=== PATIENT | female | born 1965 | race Caucasian/White ===

== ENCOUNTER 2017-07-30 19:18 | Emergency (ER) | payer BC ==
[2017-07-30 21:19] VITALS: BP 124/79
--- NOTE | 2017-07-31 06:32 | ED ---
Marley Villagran Rebecca, scribed for Alicia Gannuel on 07/30/17 at 2040 . Throat Pain/Nasal Congestion - HPI Summary HPI Summary: Pt is a 51 y/o F who presents to ED c/o impaired R eye vision. Pt states that at 1840 tonight while at rest she suddenly began experiencing "streaky black things in my eye" and she can "only see lights." Sx aggravated and alleviated by nothing. Denies any visual changes of the L eye or MCCRACKEN. Confirms she had normal visual acuity prior to onset of sx. No recent injuries and she is not on blood thinners. 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 PSHx bilateral cataract. Has an appointment with her retinal specialist (Dr. Angelo) in [place] tomorrow morning at 0900. - History of Current Complaint Chief Complaint: EDEyeProblem Time Seen by Provider: 07/30/17 19:57 Hx Obtained From: Patient Onset/Duration: Sudden Onset, Still Present Cough: None - Allergies/Home Medications Allergies/Adverse Reactions: Allergies Allergy/AdvReac Type Severity Reaction Status Date / Time Clarithromycin [From Biaxin] Allergy Unknown Verified 07/30/17 19:37 Reaction Details PMH/Surg Hx/FS Hx/Imm Hx Respiratory History: Reports: Hx Asthma Sensory History: Reports: Hx Cataracts, Other Sensory Impairments - Hx particual retinal detachment and vitrious hemorrhage (R eye) - Cancer History Hx Chemotherapy: No Hx Radiation Therapy: No - Surgical History Surgery Procedure, Year, and Place: CATARACT BILATERALLY Infectious Disease History: No Infectious Disease History: Denies: Traveled Outside the in Last 30 Days - Family History Known Family History: Positive: Cardiac Disease, Hypertension, Diabetes - Social History Alcohol Use: None Substance Use Type: Reports: None Smoking Status (MU): Never Smoked Tobacco Review of Systems Positive: Other - R eye visual change; NEGATIVE: visual change sof the L eye Negative: Headache All Other Systems Reviewed And Are Negative: Yes Physical Exam - Summary Physical Exam Summary: Appearance: Well appearing, no pain distress Skin: warm, dry, reflects adequate perfusion Head/face: normal Eyes: EOMI, MI, she cannot count fingers or distinguish anything, is completely blind, with her R eye ENT: normal Neck: supple, nontender Respiratory: CTA, breath sounds present Cardiovascular: RRR, pulses symmetrical Abdomen: nontender, soft Bowel: present Musculoskeletal: normal, strength/ROM intact Neuro: normal, sensory motor intact, A&Ox3 Triage Information Reviewed: Yes Vital Signs On Initial Exam: Initial Vitals Temp Pulse Resp BP Pulse Ox 97.3 F 90 18 140/89 97 07/30/17 19:32 07/30/17 19:32 07/30/17 19:32 07/30/17 19:32 07/30/17 19:32 Vital Signs Reviewed: Yes - [place] Coma Scale Coma Scale Total: 15 Diagnostics - Vital Signs Vital Signs Temp Pulse Resp BP Pulse Ox 07/30/17 20:00 94 137/74 97 07/30/17 19:58 90 97 07/30/17 19:56 133/73 07/30/17 19:53 98.0 F 92 16 133/73 97 07/30/17 19:32 97.3 F 90 18 140/89 97 - Laboratory Lab Statement: Any lab studies that have been ordered have been reviewed, and results considered in the medical decision making process. Re-Evaluation - Re-Evaluation First Eval Re-Evaluation Time: 21:05 Comment: Discussing consult with Dr. Angelo and D/C plan. EENT Course/Dx - Course Assessment/Plan: Pt is a 51 y/o F who presents to ED c/o impaired R eye vision. Pt states that at 1840 tonight while at rest she suddenly began experiencing "streaky black things in my eye" and she can "only see lights." Sx aggravated and alleviated by nothing. Denies any visual changes of the L eye or MCCRACKEN. Confirms she had normal visual acuity prior to onset of sx. No recent injuries and she is not on blood thinners. 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 PSHx bilateral cataract. Has an appointment with her retinal specialist (Dr. Angelo) in [place] tomorrow morning at 0900. Discussed care of pt with Dr. Angelo woh reported there is nothing that needs to be done acutely, and that she should cease any blood thinners, sleep with her head elevated and follow up tomorrow morning as scheduled. She will be D/C to home with Dx of vision loss, R eye and r/o vitreous hemorrhage and a follow up with her retinal specialist. She understands and agrees. - Diagnoses Provider Diagnoses: r/o vitreous hemorrhage, Vision loss, right eye - Provider Notifications Discussed Care Of Patient With: Dr. Ghassan Angelo Time Discussed With Above Provider: 21:04 Instructed by Provider To: Other - Discussed the case and he stated that there is nothing to be done at this time, stop blood thinners and elevate head at night when sleep and she should follow up tomorrow morning as scheduled. Discharge - Discharge Plan Condition: Stable Disposition: HOME Patient Education Materials: Blurred Vision (ED) Referrals: Sukhdev Alas MD [Primary Care Provider] - 3 Days Additional Instructions: Elevate the head at 45 degrees tonight when sleeping. Do not take any blood thinners. Follow up with Dr. Angelo tomorrow as scheduled. The documentation as recorded by the Marley bautista Rebecca accurately reflects the service I personally performed and the decisions made by , oFreign Gann.
== END 2017-07-30 21:22 | disposition home or self-care (01) ==
LOC: ED 19:18
DX: H54.61 Unqualified visual loss, right eye, normal vision left eye (principal); Z98.49 Cataract extraction status, unspecified eye
CPT/HCPCS: 99282